=== PATIENT | male | born 1935 ===

== ENCOUNTER 2017-09-22 23:08 | Emergency (ER) | payer MEDICARE ==
--- NOTE | 2017-09-22 23:28 | Emergency Department Report ---
ED Fall HPI - General Stated Complaint: FALL Time Seen by Provider: 09/22/17 23:21 - History of Present Illness Initial Comments: Patient is a 82 years old male with history of advanced dementia presented to the ER via EMS for evaluation of a fall that happened just prior to admission to the ER. Patient is severely demented and unable to get any information from him. But he is alert moving all his extremities in no acute distress. Information from EMS stated that there is one person in the assisted-living and the only information that he have it is just dementia. MD Complaint: fall -: Sudden Fall From: standing When Fall Occurred: just prior to arrival Fall Witnessed: yes, by living facility s Place Fall Occurred: other (assisted-living) Loss of Consciousness: none Prolonged Down Time?: no Symptoms Prior to Fall: none Location: head, neck Context: tripped/slipped - Related Data Allergies Allergy/AdvReac Type Severity Reaction Status Date / Time Unable to Assess Allergy Unverified 09/22/17 23:45 ED Review of Systems ROS: Stated complaint: FALL Other details as noted in HPI Comment: Unobtainable due to pts medical conditions ED Past Medical Hx - Past Medical History Hx Dementia: Yes ED Physical Exam - General Limitations: Altered Mental Status General appearance: alert, in no apparent distress - Head Head exam: Present: atraumatic, normocephalic, normal inspection - Eye Eye exam: Present: normal appearance, PERRL - ENT ENT exam: Present: normal exam, normal orophraynx, mucous membranes moist - Neck Neck exam: Present: normal inspection, full ROM. Absent: tenderness, meningismus - Respiratory Respiratory exam: Present: normal lung sounds bilaterally. Absent: respiratory distress, wheezes, rales, rhonchi, chest wall tenderness, accessory muscle use, decreased breath sounds - Cardiovascular Cardiovascular Exam: Present: regular rate, normal rhythm, normal heart sounds - GI/Abdominal GI/Abdominal exam: Present: soft, normal bowel sounds. Absent: distended, tenderness, guarding, rebound, rigid, organomegaly, mass, bruit, pulsatile mass - Extremities Exam Extremities exam: Present: normal inspection, full ROM, normal capillary refill - Back Exam Back exam: Present: normal inspection, full ROM. Absent: CVA tenderness (L) - Neurological Exam Neurological exam: Present: alert, CN II-XII intact - Skin Skin exam: Present: warm, intact, normal color ED Course Vital Signs 09/22/17 09/22/17 09/22/17 23:31 23:32 23:38 Temperature 97.2 F L Pulse Rate 71 Respiratory 18 18 Rate Blood Pressure 115/59 115/65 Blood Pressure 115/65 [Left] O2 Sat by Pulse 99 99 99 Oximetry ED Medical Decision Making - Lab Data Result diagrams: 09/22/17 23:37 09/22/17 23:37 - Radiology Data Radiology results: report reviewed Referring Physician: SACHA SCHMIDT Patient Name: CARLY MATTSON Date of : 1935 Sex: Male Report Date: 2017-09-23 Report Status: [place] [address] Cat Scan Report Signed Patient: CARLY MATTSON MR#: [id number] : 1935 Acct:[id number] Age/Sex: 82 / M ADM Date: 09/22/17 Loc: ED Attending Dr: Ordering Physician: SACHA SCHMIDT Date of Service: 09/22/17 Procedure(s): CT head/brain wo con Accession Number(s): [id number] cc: SACHA SCHMIDT FINAL REPORT EXAM: CT HEAD/BRAIN WO CON HISTORY: Fall TECHNIQUE: Routine axial imaging was obtained of the brain without IV contrast. FINDINGS: There is mgmm-hk-rpcjaqzi generalized atrophy. There is diminished attenuation of the periventricular and deep white matter compatible with chronic microvascular disease changes. There is no evidence of acute stroke or hemorrhage. The ventricular system is symmetric in size. The basal cisterns appear normal. The visualized sinuses are clear. Mastoid air cells are well pneumatized. The calvarium appears intact. IMPRESSION: Fbly-ln-nljounjg atrophy with chronic ischemic white matter disease changes. No evidence of acute stroke or hemorrhage. Transcribed By: RB Dictated By: PENLEOPE ALMAZAN MD Electronically Authenticated By: PENELOPE ALMAZAN MD Signed Date/Time: 09/23/1729 DD/ Referring Physician: SACHA SCHMIDT Patient Name: CARLY MATTSON Date of : 1935 Sex: Male Report Date: 2017-09-23 Report Status: Finalized Findings [facility] [address] [place] [address] Cat Scan Report Signed Patient: CARLY MATTSON MR#: [id number] : 1935 Acct:[id number] Age/Sex: 82 / M ADM Date: 09/22/17 Loc: ED Attending Dr: Ordering Physician: SACHA SCHMIDT Date of Service: 09/22/17 Procedure(s): CT cervical spine wo con Accession Number(s): [id number] cc: SACHA SCHMIDT FINAL REPORT EXAM: CT CERVICAL SPINE WO CON HISTORY: Fall TECHNIQUE: Routine axial imaging was obtained of the cervical spine without IV contrast with sagittal coronal reconstructions. FINDINGS: There is severe narrowing of the C5-C6 and C6-C7 disc. The alignment appears normal. There is no evidence of fracture. There is varying degrees of hypertrophic facet arthropathy changes in the mid cervical spine with varying degrees of neural foraminal impingement. The pre vertebral soft tissues appear well maintained. There mild to moderate arthritic changes of the C1-C2 articulation. IMPRESSION: Extensive arthritic changes noted. No acute injury. Transcribed By: RB Dictated By: PENELOPE ALMAZAN MD Electronically Authenticated By: PENELOPE ALMAZAN MD Signed Date/Time: 09/23/1731 DD/ TD/TT: 09/23/1731 Critical care attestation.: If time is entered above; I have spent that time in minutes in the direct care of this critically ill patient, excluding procedure time. ED Disposition Clinical Impression: Fall, Contusion, Head injury Disposition: DC-01 TO HOME OR SELFCARE Is pt being admited?: No Condition: Stable Instructions: Minor Head Injury (ED), Fall Prevention for Older Adults (ED)
[2017-09-22] MEDS ORDERED: ATIVAN IM ONE (23:30)
[2017-09-22 23:53] LABS: Basophils # (Auto) 0.1 K/mm3 (0.0-0.1); Basophils % (Auto) 1.2 % (0.0-1.8); Eosinophils # (Auto) 0.2 K/mm3 (0.0-0.4); Eosinophils % (Auto) 2.9 % (0.0-4.3); Hematocrit 38.6 % (35.5-45.6); Hemoglobin 13.8 gm/dl (11.8-15.2); Lymphocytes # (Auto) 1.5 K/mm3 (1.2-5.4); Lymphocytes % (Auto) 23.4 % (13.4-35.0); Mean Corpuscular HGB Conc 36 % (32-34); Mean Corpuscular Hemoglobin 35 pg (28-32); Mean Corpuscular Volume 97 fl (84-94); Monocytes # (Auto) 0.6 K/mm3 (0.0-0.8); Monocytes % (Auto) 8.5 % (0.0-7.3); Platelet Count 177 K/mm3 (140-440); Red Blood Count 3.99 M/mm3 (3.65-5.03); Red Cell Distribution Width 13.6 % (13.2-15.2)
[2017-09-23 00:09] LABS: Albumin 4.4 g/dL (3.9-5); Calcium 9.8 mg/dL (8.4-10.2)
--- NOTE | 2017-09-23 00:32 | XRay Report ---
FINAL REPORT EXAM: XR CHEST 1V AP HISTORY: Fall TECHNIQUE: A portable upright view of the chest was submitted. FINDINGS: Heart size mediastinum appear normal. The lungs are clear. Pleural fluid is not seen. The bones soft tissues reveal arthritic changes in left shoulder. IMPRESSION: No active chest disease.
--- NOTE | 2017-09-23 00:34 | Cat Scan Report ---
FINAL REPORT EXAM: CT HEAD/BRAIN WO CON HISTORY: Fall TECHNIQUE: Routine axial imaging was obtained of the brain without IV contrast. FINDINGS: There is zssv-ge-cxpugede generalized atrophy. There is diminished attenuation of the periventricular and deep white matter compatible with chronic microvascular disease changes. There is no evidence of acute stroke or hemorrhage. The ventricular system is symmetric in size. The basal cisterns appear normal. The visualized sinuses are clear. Mastoid air cells are well pneumatized. The calvarium appears intact. IMPRESSION: Wdxe-sq-dsxguzuk atrophy with chronic ischemic white matter disease changes. No evidence of acute stroke or hemorrhage.
--- NOTE | 2017-09-23 00:37 | Cat Scan Report ---
FINAL REPORT EXAM: CT CERVICAL SPINE WO CON HISTORY: Fall TECHNIQUE: Routine axial imaging was obtained of the cervical spine without IV contrast with sagittal coronal reconstructions. FINDINGS: There is severe narrowing of the C5-C6 and C6-C7 disc. The alignment appears normal. There is no evidence of fracture. There is varying degrees of hypertrophic facet arthropathy changes in the mid cervical spine with varying degrees of neural foraminal impingement. The pre vertebral soft tissues appear well maintained. There mild to moderate arthritic changes of the C1-C2 articulation. IMPRESSION: Extensive arthritic changes noted. No acute injury.
[2017-09-23 19:03] VITALS: BP 127/67
== END 2017-09-23 18:19 | disposition home or self-care (01) ==
LOC: ED 23:08
DX: S10.93XA Contusion of unspecified part of neck, initial encounter (principal); S09.90XA Unspecified injury of head, initial encounter; W01.0XXA Fall on same level from slipping, tripping and stumbling without subsequent striking against object, initial encounter; Y93.89 Activity, other specified; Y92.89 Other specified places as the place of occurrence of the external cause; Y99.8 Other external cause status
CPT/HCPCS: 36415; 70450; 71045; 72125; 80053; 85025; 96372; 99284; G0480; J2060; 80320